=== PATIENT | male | born 1945 | race American Indian/Alaskan Native ===

== ENCOUNTER 2020-02-07 09:14 | Outpatient (CLI) | payer OTHER ==
[2020-02-07 10:04] LABS: Blood Urea Nitrogen 17 mg/dL (9-20)
--- NOTE | 2020-02-07 11:37 | Cat Scan Report ---
CT chest w con, CT abdomen pelvis w con INDICATION: PROSTATE CANCER. TECHNIQUE: All CT scans at this location are performed using the following dose modulation technique: Automated exposure control. Helical slices were obtained through the chest, abdomen, and pelvis following the a dministration 100 cc of Omnipaque 300 COMPARISON: None available. FINDINGS: Chest: No pulmonary nodules or masses are seen. No focal infiltrate is seen. There is some mild subse gmental atelectasis or scar in the right lower lobe. On review of the mediastinum there is no adenopathy. The heart size is normal. The aorta is normal in diameter. The thyroid gland is enlarged. There is a 2.4 cm nodule in the lower pole. ABDOMEN: The liver, spleen, pancreas, right kidney, and small bowel show no acute abnormality. There is some haziness in the central mesentery but no discrete adenopathy or masses are seen. The appendix is unremarkable. There are 2 hypodense lesions in the left kidney. There is a 1.5 cm nodule in the upper pole which me asures 23 Hounsfield units and a 1.3 cm hypodense nodule in the lower pole which measures 17 Hounsfie ld units. Pelvis: There is no obstruction or inflammation. There are iliac chain nodes which measure up to 6 mm in the short axis is a normal fatty ruth. There are small groin nodes. On review of bone windows, no acute osseous abnormalities are seen. There is mild to moderate degener ative change in the hips. IMPRESSION: 1. No metastatic disease is identified. There are small iliac chain nodes which are morphologically u nremarkable and are not abnormally enlarged. 2. There are 2 hypodense lesions in the left kidney which measure above water density. Further evalua tion with renal ultrasound is recommended. Signer Name: Darryl Vela MD Signed: 02/07/2020 11:33 AM Workstation Name: [id number]
== END 2020-02-07 09:15 | disposition home or self-care (01) ==
LOC: CT 09:14
PROVIDERS: ATTEND Internal Medicine
DX: Z01.89 Encounter for other specified special examinations (principal); R63.4 Abnormal weight loss; M16.10 Unilateral primary osteoarthritis, unspecified hip; E04.8 Other specified nontoxic goiter; E04.1 Nontoxic single thyroid nodule
CPT/HCPCS: 36415; 71260; 74177; 82565; 84520; Q9967